=== PATIENT | female | born 1990 | race Two or more races ===

== ENCOUNTER → 2025-10-11 | Outpatient (REF) | payer OTHER ==
[2025-10-15 14:15] LABS: HPV APTIMA Not Detected (Not Detected)
== END ==
LOC: M SFHCLERA 17:40
PROVIDERS: ATTEND Student in an Organized Health Care Education/Training Program
DX: Z01.419 Encounter for gynecological examination (general) (routine) without abnormal findings (principal)
CPT/HCPCS: 87624; G0123